=== PATIENT | male | born 1975 | race Caucasian/White ===

== ENCOUNTER 2024-12-18 08:42 | Outpatient (CLI) | payer OTHER, SELFPAY | END 2024-12-18 08:43 | disposition home or self-care (01) | LOC: NFLDREF 12-23 04:16 | PROVIDERS: PCP Family Medicine; Referring Provider Family Medicine; Visit Provider Family Medicine | DX: Z13.1 Encounter for screening for diabetes mellitus (principal); Z12.5 Encounter for screening for malignant neoplasm of prostate; Z13.6 Encounter for screening for cardiovascular disorders | CPT/HCPCS: 80053; 80061; G0103 ==